=== PATIENT | female | born 1990 | race Two or more races ===

== ENCOUNTER 2019-07-27 07:20 | Emergency (ER) | payer OTHER ==
[~2019-07-27] VITALS: Ht 154.9 cm; Wt 76.0 kg
[2019-07-27] MEDS ORDERED: ONDANSETRON HCL 4MG/2ML INJ IV STA (08:25)
[2019-07-27] MEDS ORDERED: SODIUM CHLORIDE 0.9% 1,000 ML IV ONE (08:25)
[2019-07-27] MEDS ORDERED: ACETAMINOPHEN 500MG TABLET PO PRN (08:30)
[2019-07-27] MEDS ORDERED: ACETAMINOPHEN 325MG TABLET PO ONE (08:45)
[2019-07-27 08:50] LABS: BASOPHILS % 0.1 % (0.0-2.0); EOSINOPHILS % 0.6 % (0.0-5.0); HEMATOCRIT. 43.6 % (36.0-48.0); HEMOGLOBIN. 14.7 g/dL (12.0-16.0); LYMPHOCYTES % 11.4 % (20.0-50.0); MEAN PLATELET VOLUME 8.9 fl (7.4-10.4); MONOCYTES % 4.6 % (2.0-8.0); NEUTROPHILS % 83.3 % (40.0-76.0); PLATELET 256 x1000/uL (130-400); RED BLOOD CELL COUNT 4.91 mill/uL (4.2-5.4); RED CELL DISTRIBUTION WIDTH 13.2 % (11.6-14.6)
[2019-07-27 09:01] LABS: CHLORIDE 110 mEq/L (98-107)
[2019-07-27 09:16] LABS: CLARITY URINE CLOUDY (CLEAR); COLOR URINE YELLOW (YELLOW); KETONES URINE 1+ (NEGATIVE); LEUKOCYTE ESTERASE URINE 3+ (NEGATIVE); NITRITE URINE NEGATIVE (NEGATIVE); OCCULT BLOOD URINE 3+ (NEGATIVE); PROTEIN URINE TRACE (NEGATIVE); SPECIFIC GRAVITY URINE 1.017 (1.005-1.030)
[2019-07-27 11:26] VITALS: BP 112/70
== END 2019-07-27 12:00 | disposition home or self-care (01) ==
LOC: ER 07:20
DX: N10 Acute pyelonephritis (principal)
CPT/HCPCS: 36415; 74176; 76700; 80053; 81003; 81025; 83690; 85025; 96361; 96374; 99284; J2405; J7030; Z7610

== ENCOUNTER 2020-06-18 09:29 | Emergency (ER) | payer OTHER ==
[~2020-06-18] VITALS: Ht 154.9 cm; Wt 84.0 kg
[2020-06-18] MEDS ORDERED: PREDNISONE 20MG TABLET PO ONE (10:45)
[2020-06-18 11:06] VITALS: BP 111/73
== END 2020-06-18 11:09 | disposition home or self-care (01) ==
LOC: ER 09:29
DX: L29.9 Pruritus, unspecified (principal); F12.10 Cannabis abuse, uncomplicated; J45.909 Unspecified asthma, uncomplicated; Z88.8 Allergy status to other drugs, medicaments and biological substances
CPT/HCPCS: 99283; J7512

== ENCOUNTER 2021-07-24 08:00 | Emergency (ER) | payer OTHER ==
[~2021-07-24] VITALS: Ht 154.9 cm; Wt 87.0 kg
[2021-07-24 08:02] VITALS: BP 127/70
[2021-07-24] MEDS ORDERED: IPRATROPIUM BROMIDE (0.02%) 0.5MG/2.5ML NEB HHN STA (08:18)
[2021-07-24] MEDS ORDERED: ALBUTEROL (0.083%) 2.5MG/3ML NEB HHN STA (08:18)
[2021-07-24] MEDS ORDERED: PREDNISONE 20MG TABLET PO STA (08:18)
[2021-07-24] MEDS ORDERED: ACETAMINOPHEN 325MG TABLET PO ONE (08:30)
[2021-07-24] MEDS ORDERED: BENZOCAINE/LANOLIN/ALOE VERA SPRAY TOP ONE (08:30)
[2021-07-24] MEDS ORDERED: P50 MT (08:41)
[2021-07-24] MEDS ORDERED: TOPUD MT (08:42)
[2021-07-24] MEDS ORDERED: BENZ1LOZ60 MT (08:42)
== END 2021-07-24 10:20 | disposition home or self-care (01) ==
LOC: ER 08:00
DX: J45.901 Unspecified asthma with (acute) exacerbation (principal); Z88.9 Allergy status to unspecified drugs, medicaments and biological substances
CPT/HCPCS: 71045; 94640; 99283; J7512; Z7610

== ENCOUNTER 2021-10-28 08:29 | Emergency (ER) | payer MEDICAID, OTHER ==
[~2021-10-28] VITALS: Ht 154.9 cm; Wt 84.0 kg
[~2021-10-28 08:29] MED LIST: BENZ1LOZ60 MT; P50 MT; TOPUD MT
[2021-10-28 08:56] VITALS: BP 118/76
== END 2021-10-28 08:59 | disposition home or self-care (01) ==
LOC: ER 08:29
DX: H04.123 Dry eye syndrome of bilateral lacrimal glands (principal); F12.10 Cannabis abuse, uncomplicated
CPT/HCPCS: 99281

== ENCOUNTER 2022-01-06 18:34 | Emergency (ER) | payer OTHER ==
[~2022-01-06] VITALS: Ht 154.9 cm; Wt 85.0 kg
[2022-01-06 21:27] LABS: BASOPHILS % 0.3 % (0.0-2.0); EOSINOPHILS % 1.2 % (0.0-5.0); HEMOGLOBIN. 14.3 g/dL (12.0-16.0); MEAN CORPUSCULAR HEMOGLOBIN 29.4 pg (28.0-32.0); MEAN CORPUSCULAR VOLUME 88.1 fL (81.0-99.0); MEAN PLATELET VOLUME 9.3 fl (7.4-10.4); NEUTROPHILS % 56.5 % (40.0-76.0); PLATELET 257 x1000/uL (130-400); RED BLOOD CELL COUNT 4.88 mill/uL (4.2-5.4); RED CELL DISTRIBUTION WIDTH 13.5 % (11.6-14.6)
[2022-01-06 21:29] LABS: CHLORIDE 106 mEq/L (98-107)
[2022-01-06] MEDS ORDERED: LORA-250 MT (22:37)
[2022-01-06 23:13] VITALS: BP 112/69
== END 2022-01-06 23:14 | disposition home or self-care (01) ==
LOC: ER 18:41
DX: R42 Dizziness and giddiness (principal); F12.10 Cannabis abuse, uncomplicated; Z88.9 Allergy status to unspecified drugs, medicaments and biological substances
CPT/HCPCS: 36415; 80053; 81025; 85025; 93005; 99284

== ENCOUNTER 2022-06-30 16:15 | Emergency (ER) | payer OTHER ==
[~2022-06-30] VITALS: Ht 160 cm; Wt 91.0 kg
[~2022-06-30 16:15] MED LIST changes: -BENZ1LOZ60 MT; +BENZ1LOZ73 MT; +LORA-250 MT
[2022-06-30 16:19] VITALS: BP 146/96
== END 2022-06-30 19:30 | disposition left against medical advice (07) ==
LOC: ER 16:15
DX: Z53.21 Procedure and treatment not carried out due to patient leaving prior to being seen by health care provider (principal)